=== PATIENT | male | born 1975 | race Two or more races ===

== ENCOUNTER 2020-09-22 15:19 | Emergency (ER) | payer MEDICAID ==
[~2020-09-22] VITALS: Ht 172.7 cm; Wt 93.5 kg
[2020-09-22 15:36] VITALS: BP 183/109
--- NOTE | 2020-09-22 15:37 | NUR ---
SHOE SPRAYER NOTE: SLING PLACED, PT SEATED IN WHEELCHAIR, ARM SUPPORTED BY PILLOWS.
--- NOTE | 2020-09-22 16:22 | NUR ---
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
[2020-09-22] MEDS ORDERED: HYDROmorphone 1 MG/ML, 1ML INJ ONE (16:37)
--- NOTE | 2020-09-22 16:43 | NUR ---
Pt reports fall while rollerblading. Pt's R shoulder CMS intact, deformity noted. Pt medicated for 8/10 pain per MAR. Pt to xray via radha.
[2020-09-22] MEDS ORDERED: HYDROmorphone 1 MG/ML, 1ML INJ IM ONE (17:00)
[2020-09-22] MEDS ORDERED: LIDOCAINE-MPF 1%, 5ML ONE (17:13)
--- NOTE | 2020-09-22 17:29 | NUR ---
TAMIA and at bedside to administer R shoulder capsular block. Pt tolerated well, reports pain decreased after dilaudid.
--- NOTE | 2020-09-22 18:56 | NUR ---
REPORT RECEIVED FROM MIGUEL RAM
--- NOTE | 2020-09-22 19:13 | NUR ---
Patient given discharge instructions and they have confirmed that they understand the instructions. Patient ambulatory with steady gait.
== END 2020-09-22 19:14 | disposition home or self-care (01) ==
LOC: ED 16:32
DX: S43.004A Unspecified dislocation of right shoulder joint, initial encounter (principal); V00.121A Fall from non-in-line roller-skates, initial encounter; Y93.51 Activity, roller skating (inline) and skateboarding; Y92.89 Other specified places as the place of occurrence of the external cause; Y99.8 Other external cause status
CPT/HCPCS: 23650; 73030; 96372; 99284; J1170